=== PATIENT | female | born 1995 | race Two or more races ===

== ENCOUNTER 2019-07-10 22:23 | Emergency (ER) | payer OTHER ==
[~2019-07-10] VITALS: Ht 165.1 cm; Wt 65.8 kg
--- NOTE | 2019-07-10 22:30 | NUR ---
PT BIBSELF C/O NAUSEA AND VOMITTING. PT AAOX4. RESPIRATIONS EVEN AND UNLABORED. SKIN WARM AND INTACT. NO ACUTE DISTRESS NOTED AT THIS TIME. WILL CONTINUE TO MONITOR
[2019-07-10] MEDS ORDERED: ONDANSETRON 4 MG TAB.RAPDIS ONE ×2 (22:47→22:54)
[2019-07-10] MEDS ORDERED: ONDANSETRON 4 MG TAB.RAPDIS SL ONE (23:00)
[2019-07-10] MEDS ORDERED: ONDANSETRON HCL/PF 4 MG/2 ML VIAL ONE (23:15)
--- NOTE | 2019-07-10 23:15 | NUR ---
PT UNABLE TO TOLERATE ZOFRAN ODT, 2 EPISODES VOMITTING. MD AWARE. PER VERBAL MD ORDER, WILL ADMINISTER 1L NS IV X1 NOW AND ZOFRAN 4MG IV X1 NOW
--- NOTE | 2019-07-11 00:22 | NUR ---
Patient discharged to home in stable condition. Written and verbal after care instructions given. Patient verbalizes understanding of instruction.IV removed. Catheter intact and site benign. Pressure and 4x4 applied to site. No bleeding noted.Pt ambulatory with a steady gait
[2019-07-11 00:23] VITALS: BP 124/89
[2019-07-11] MEDS ORDERED: ONDANSETRON HCL/PF 4 MG/2 ML VIAL IVP ONE (00:30)
[2019-07-11] MEDS ORDERED: IV NS 0.9% 1,000 ML BAG IV ONE (00:30)
== END 2019-07-11 00:23 | disposition home or self-care (01) ==
LOC: ER 22:24
DX: J06.9 Acute upper respiratory infection, unspecified (principal); R11.2 Nausea with vomiting, unspecified; Z98.890 Other specified postprocedural states; Z60.2 Problems related to living alone
CPT/HCPCS: 96361; 96374; 99283; J2405; J7030; Q0162

== ENCOUNTER 2022-01-11 17:40 | Emergency (ER) | payer OTHER ==
[~2022-01-11] VITALS: Ht 149.9 cm; Wt 72.6 kg
--- NOTE | 2022-01-11 18:11 | NUR ---
TO ER BED 2, C/O VAGINAL SPOTTING TODAY, 6 WEEKS , AAOX3, BREATHING EVEN AND NON LABORED, AWAITING MD ORDERS
--- NOTE | 2022-01-11 19:18 | NUR ---
REPORT GIVEN TO FABIOLA CHEN FOR LUIZ
[2022-01-11 19:30] LABS: CALCIUM, SERUM 8.8 mg/dL (8.5-10.1); CREATININE 0.6 mg/dL (0.6-1.3); POTASSIUM 3.1 mmol/L (3.5-5.1)
--- NOTE | 2022-01-11 19:43 | NUR ---
RECEIVED PATIENT AAOX4. BLOOD WAS ALREADY DRAWN. WAITING FOR RESULTS. NO COMPLAINTS OF PAIN, MORE VAGINAL BLEEDING AT THE MOMENT. WILL CONTINUE TO MONITOR PATIENT.
--- NOTE | 2022-01-11 19:54 | NUR ---
FOLLOWED UP WITH LAB
[2022-01-11 20:04] LABS: BASOPHILS % (AUTO) 0.2 % (0.0-2.0); EOSINOPHILS % (AUTO) 0.3 % (0.0-6.0); HEMATOCRIT 36 % (33-45); HEMOGLOBIN 12.2 g/dL (11.5-14.8); LYMPHOCYTES % (AUTO) 27.5 % (20.0-44.0); MEAN CORPUSCULAR HGB CONC 34 g/dl (31.0-36.0); MEAN CORPUSCULAR VOLUME 90 fL (82-100); MONOCYTES # (AUTO) 0.5 K/uL (0.1-1.30); MONOCYTES % (AUTO) 6.8 % (2.0-12.0); NEUTROPHILS # (AUTO) 4.7 K/uL (1.8-8.9); NEUTROPHILS % (AUTO) 65.2 % (43.0-81.0); PLATELET COUNT (AUTO) 257 K/uL (150-450); RED BLOOD CELL COUNT(AUTO) 3.98 MIL/uL (4.0-5.2); WHITE BLOOD COUNT (AUTO) 7.3 K/uL (4.3-11.0)
[2022-01-11 20:12] VITALS: BP 122/70
--- NOTE | 2022-01-11 20:12 | NUR ---
Patient does not wish to proceed with medical care recommended by Dr. jones. Patient given information related to possible complications, up to and including , which could occur as a result of leaving the hospital at this time. Patient verbalizes understanding of risks involved due to leaving against medical advice. Patient has signed AMA form.
== END 2022-01-11 20:13 | disposition left against medical advice (07) ==
LOC: ER 17:56
DX: O46.91 Antepartum hemorrhage, unspecified, first trimester (principal); Z3A.01 Less than 8 weeks gestation of pregnancy
CPT/HCPCS: 36415; 76805-TC; 80048-TC; 84702-TC; 85025-TC; 86900-TC

== ENCOUNTER 2025-04-11 02:39 | Emergency (ER) | payer OTHER ==
[~2025-04-11] VITALS: Ht 152.4 cm; Wt 63.5 kg
[2025-04-11] MEDS ORDERED: ACETAMINOPHEN ES 500 MG TABLET ONE (03:08)
[2025-04-11 03:28] LABS: PREGNANCY TEST URINE QUAL NEGATIVE (NEGATIVE)
[2025-04-11] MEDS: ACETAMINOPHEN ES 500 MG TABLET PO ONE (03:38)
[2025-04-11 03:45] VITALS: BP 115/80; TEMP 98; O2SAT 98
== END 2025-04-11 03:51 | disposition home or self-care (01) ==
LOC: ER 02:40
DX: S50.01XA Contusion of right elbow, initial encounter (principal); S90.01XA Contusion of right ankle, initial encounter; W01.0XXA Fall on same level from slipping, tripping and stumbling without subsequent striking against object, initial encounter; Y93.89 Activity, other specified; Y92.89 Other specified places as the place of occurrence of the external cause; Y99.8 Other external cause status
CPT/HCPCS: 84703-TC